=== PATIENT | male | born 1970 | race Caucasian/White ===

== ENCOUNTER 2017-01-18 09:08 | Emergency (ER) ==
[2017-01-18 09:19] VITALS: BP 144/97; TEMP 97.7; BMI 26.7
[2017-01-18] MEDS: NORCO 10-325 PO STA (09:42)
[2017-01-18] MEDS: TORADOL IM STA (09:43)
--- NOTE | 2017-01-18 10:23 | DI ---
EXAM: Radiographs, left foot HISTORY: Left foot pain. COMPARISON: None available. TECHNIQUE: Three views. FINDINGS: Bone mineralization is normal. There is no fracture or dislocation. Mild marginal osteo phyte formation seen at the first metatarsal phalangeal joint. No focal soft tissue abnormality is seen. IMPRESSION: 1. No fracture or dislocation. 2. Mild first MTP joint osteoarthritis.
--- NOTE | 2017-01-18 10:38 | ED.PDOC ---
General ED Provider: Dr. FRANCY BYERS Chief Complaint: Foot Pain/Injury Stated Complaint: foot pain Time Seen by Physician: 09:10 (left 1st oe pain red , hot) Mode of Arrival: Walk-In Information Source: Patient Exam Limitations: No limitations Primary Care Provider: AFSHAN DUENAS Nursing and Triage Documentation Reviewed and Agree: Yes Musculoskeletal Complaint Exam - Ankle/Foot Complaint/Exam Location of Injury: Reports: Left, Foot, Toe #1 Mechanism of Injury: Reports: No known trauma Onset/Duration: 1 day Symptoms Are: Reports: Still present Onset of Pain: Reports: Hours Initial Severity: Moderate Current Severity: Moderate Location: Reports: Discrete Character: Reports: Throbbing Alleviating: Reports: None Aggravating: Reports: Movement Able to Bear Weight: Yes Associated Signs and Symptoms: Reports: Swelling, Redness. Denies: Bruising, Fever, Weakness, Numbness, Tingling Gout Risk Factors: Reports: >40 years old Related Surgical History: Reports: None Differential Diagnosis: Closed Fracture, Gout Review of Systems - Review Of Systems Constitutional: Reports: No symptoms Eyes: Reports: No symptoms Ears, Nose, Mouth, Throat: Reports: No symptoms Respiratory: Reports: No symptoms Cardiac: Reports: No symptoms GI: Reports: No symptoms : Reports: No symptoms Musculoskeletal: Reports: Joint pain Skin: Reports: No symptoms Neurological: Reports: No symptoms Endocrine: Reports: No symptoms Hematologic/Lymphatic: Reports: No symptoms All Other Systems: Reviewed and Negative Past Medical History - Past Medical History Previously Healthy: Yes Endocrine: Reports: None Cardiovascular: Reports: None Respiratory: Reports: None Hematological: Reports: None Gastrointestinal: Reports: None Genitourinary: Reports: None Neuro/Psych: Reports: None Musculoskeletal: Reports: None Cancer: Reports: None - Surgical History General Surgical History: Reports: None - Family History Family History: Reports: None - Social History Smoking Status: Current some day smoker, Light tobacco smoker Hx Substance Use: No Alcohol Screening: Occasionally Physical Exam - Physical Exam Appearance: Well-appearing, No pain distress, Well-nourished Eyes: LUC, EOMI, Conjunctiva clear ENT: Ears normal, Nose normal, Oropharynx normal Respiratory: Airway patent, Breath sounds clear, Breath sounds equal, Respirations nonlabored Cardiovascular: RRR, Pulses normal, No rub, No murmur GI/: Soft, Nontender, No masses, Bowel sounds normal, No Organomegaly Musculoskeletal: Normal strength, ROM intact, No edema, No calf tenderness Skin: Warm, Dry, Normal color Neurological: Sensation intact, Motor intact, Reflexes intact, Cranial nerves intact, Alert, Oriented Psychiatric: Affect appropriate, Mood appropriate Critical Care Note - Critical Care Note Total Time (mins): 0 Course - Course Orders, Labs, Meds: Orders Category Date Time Status Hydrocodone Bit/Acetaminophen [[place] 10-325] MEDS 01/18/17 09:33 Stat 1 tab PO ONCE STA Ketorolac Tromethamine [Toradol] MEDS 01/18/17 09:32 Stat 60 mg IM ONCE STA FOOT, LEFT 3 VIEWS Stat RADS 01/18/17 09:31 Ordered Medications Discontinued Medications Generic Name Dose Route Start Last Admin Trade Name Edi PRN Reason Stop Dose Admin Acetaminophen/Hydrocodone Bitart 1 tab 01/18/17 09:33 01/18/17 09:42 [place] 10-325 PO 01/18/17 09:34 1 tab ONCE STA Administration Ketorolac Tromethamine 60 mg 01/18/17 09:32 01/18/17 09:43 Toradol IM 01/18/17 09:33 60 mg ONCE STA Administration Vital Signs: Temp Pulse Resp BP Pulse Ox 01/18/17 09:09 97.7 F 93 H 20 144/97 H 98 Departure - Departure Time of Disposition: 10:37 Disposition: HOME SELF-CARE Discharge Problem: Gout attack Instructions: Gout (ED), Low Purine Diet (ED) Condition: Good Pt referred to PMD for follow-up: No Additional Instructions: Please call your Family Physician as soon as possible to schedule a follow-up appointment. Allergies/Adverse Reactions: Allergies No Known Allergies Allergy (Verified 01/18/17 09:18) Home Medications: Ambulatory Orders Naproxen Sodium [Aleve] 3 tab PO QPM 08/10/13 Hydrocodone/Acetaminophen [[place] 10-325 Tablet] 1 each PO Q8HR #12 tablet Indomethacin [Indocin] 25 mg PO BIDWM #8 capsule 01/18/17
== END 2017-01-18 10:55 | disposition home or self-care (01) ==
LOC: ED 09:08
DX: M10.9 Gout, unspecified (principal); F17.210 Nicotine dependence, cigarettes, uncomplicated
CPT/HCPCS: 96372; 99282

== ENCOUNTER 2017-03-24 16:13 | Emergency (ER) ==
[2017-03-24 16:18] VITALS: BP 146/92; TEMP 97.8; BMI 26.2
--- NOTE | 2017-03-24 16:37 | ED.PDOC ---
General ED Provider: Dr. QUAN CARVALHO JR Chief Complaint: Foot Pain/Injury Stated Complaint: DIAGNOSED WITH GOUT ON JANUARY 18....FOOT HAS NEVER REALLY CLEARED UP BUT HAS GOTTEN WORSE AGAIN IN LAST TWO DAYS. RIGHT GREAT TOE SWOLLEN AND REDDENED RED AND SWOLLEN RIGHT GREAT TOE knee and foot ....VERY TENDER TO TOUCH. ON ALLOPURINOL FOR 2.5 WEEKS, FOLLOWING DIET INSTRUCTIONS[ End ]97.8 82 20 97% 146/92 9/10 Time Seen by Physician: 16:30 Mode of Arrival: Walk-In Information Source: Patient Exam Limitations: No limitations Primary Care Provider: AFSHAN DUENAS Nursing and Triage Documentation Reviewed and Agree: No Review of Systems - Review Of Systems Constitutional: Reports: No symptoms Eyes: Reports: No symptoms Ears, Nose, Mouth, Throat: Reports: No symptoms Respiratory: Reports: No symptoms Cardiac: Reports: No symptoms GI: Reports: No symptoms : Reports: No symptoms Musculoskeletal: Reports: Gout, Joint pain Skin: Reports: No symptoms, Change in color Neurological: Reports: No symptoms Endocrine: Reports: No symptoms Hematologic/Lymphatic: Reports: No symptoms All Other Systems: Other Past Medical History - Past Medical History Previously Healthy: Yes Endocrine: Reports: None Cardiovascular: Reports: None Respiratory: Reports: None Hematological: Reports: None Gastrointestinal: Reports: None Genitourinary: Reports: None Neuro/Psych: Reports: None Musculoskeletal: Reports: Other (CHRONIC BACK ISSUES, SCIATIC NERVE) Cancer: Reports: None - Surgical History General Surgical History: Reports: None - Family History Family History: Reports: None - Social History Smoking Status: Current some day smoker, Light tobacco smoker Hx Substance Use: No Alcohol Screening: Occasionally - Immunizations Tetanus Shot up to Date: Yes Physical Exam - Physical Exam Appearance: Well-appearing, Thin Pain Distress: Moderate Neck: Supple Respiratory: Airway patent Musculoskeletal: Normal strength, ROM intact, Edema Critical Care Note - Critical Care Note Total Time (mins): 0 Course - Course Vital Signs: Temp Pulse Resp BP Pulse Ox 03/24/17 16:13 97.8 F 82 20 146/92 H 97 Departure - Departure Time of Disposition: 16:51 Disposition: HOME SELF-CARE Discharge Problem: Gout attack Qualifiers: Gout site: toe Gout etiology: idiopathic Laterality: left Qualifier Code: ( M10.072) Idiopathic gout, left ankle and foot Instructions: Low Purine Diet (ED), Gout (ED) Condition: Good Pt referred to PMD for follow-up: Yes Additional Instructions: colchicine for symptoms- discuss with your physician Naprosyn for swelling Allen for pain not controlled no refills recheck PMD this week Colcrys for gout flare 1.2 mg (two tablets) at the first sign of the flare followed by 0.6 mg (one tablet) one hour later Wait 12 hours and then resume the prophylactic dose 0.6 mg once or twice daily Prescriptions: Hydrocodone Bit/Acetaminophen [[place] 5-325] 1 - 2 tab PO Q6HR PRN #12 tablet PRN Reason: pain Naproxen [Naprosyn] 500 mg PO Q12HR PRN #30 tablet PRN Reason: PAIN Colchicine [Colcrys] 0.6 mg PO BID PRN #20 tablet PRN Reason: gout flare Allergies/Adverse Reactions: Allergies No Known Allergies Allergy (Verified 03/24/17 16:20) Home Medications: Ambulatory Orders Allopurinol 100 mg PO DAILY 03/24/17 Colchicine [Colcrys] 0.6 mg PO BID PRN #20 tablet 03/24/17 Hydrocodone Bit/Acetaminophen [[place] 5-325] 1 - 2 tab PO Q6HR PRN #12 tablet 01/03 Naproxen [Naprosyn] 500 mg PO Q12HR PRN #30 tablet 03/24/17
== END 2017-03-24 17:01 | disposition home or self-care (01) ==
LOC: ED 16:13
DX: M10.072 Idiopathic gout, left ankle and foot (principal); F17.210 Nicotine dependence, cigarettes, uncomplicated
CPT/HCPCS: 99282

== ENCOUNTER 2017-04-24 18:10 | Emergency (ER) ==
[2017-04-24 18:19] VITALS: BP 145/94; TEMP 98.2; BMI 26.0
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
--- NOTE | 2017-04-24 20:02 | CT ---
Exam: CT thorax without IV contrast. Clinical indication: Right-sided thoracic pain. TECHNIQUE: Axial unenhanced CT images of the thorax were obtained followed by coronal and sagittal reformats. Findings: There is some anterior wedging of the T9 vertebral body with some vacuum phenomenon within the T8-T 9 disc space. The appearance suggests old injury. The remainder of the vertebral bodies are unrema rkable. The sternum is intact. The bilateral clavicles, scapula, and ribs are intact. The pulmonary parenchyma is clear and there is no pleural abnormality. There are no enlarged axillary, hilar or mediastinal lymph nodes, by size criteria. The visualized portions of the upper abdomen are within normal limits. Impression: 1. Anterior wedging of the T9 vertebral body which is age indeterminate, but the appearance suggest s old. Clinical correlation recommended. 2. Otherwise unremarkable CT of the thorax.
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
[2017-04-24] MEDS ORDERED: NORCO 7.5-325 PO STA (20:41)
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
--- NOTE | 2017-04-25 06:17 | DI ---
EXAM: Right hand, two views, 04/24/2017 HISTORY: Pain. Injury COMPARISON: None. FINDINGS / IMPRESSION: The visualized osseous structures appear intact. Anatomic alignment appears within normal limits. There is no evidence of fracture or dislocation. No acute osseous abnormality.
== END 2017-04-24 21:07 | disposition home or self-care (01) ==
LOC: ED 18:10
DX: S09.90XA Unspecified injury of head, initial encounter (principal); S29.9XXA Unspecified injury of thorax, initial encounter; S49.91XA Unspecified injury of right shoulder and upper arm, initial encounter; S69.91XA Unspecified injury of right wrist, hand and finger(s), initial encounter; S39.91XA Unspecified injury of abdomen, initial encounter; S00.03XA Contusion of scalp, initial encounter; R51 Headache; Y93.55 Activity, bike riding; F17.210 Nicotine dependence, cigarettes, uncomplicated
CPT/HCPCS: 74176; 99283

== ENCOUNTER 2017-05-07 14:19 | Outpatient (CLI) ==
--- NOTE | 2017-05-07 15:32 | DI ---
EXAM: Three views of the right elbow. History: Right elbow pain. Findings: Mildly displaced radial neck fracture. No dislocation. Joint effusion is present. Impression: A mildly displaced right radial neck fracture.
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
== END 2017-05-07 14:20 | disposition home or self-care (01) ==
LOC: RAD 14:19
PROVIDERS: ATTEND Physician Assistant
DX: M25.521 Pain in right elbow (principal)

== ENCOUNTER 2018-09-05 14:56 | Emergency (ER) ==
[2018-09-05 15:01] VITALS: BP 152/99; TEMP 98.3; BMI 27.6
[2018-09-05] MEDS ORDERED: TORADOL IM STA (15:57)
--- NOTE | 2018-09-05 15:59 | ED.PDOC ---
General ED Provider: Dr. GHANSHYAM FERNANDEZ Chief Complaint: Back Pain Stated Complaint: Severe low back pain with sciatica. Chronic recurrent. Under care of PA at [facility]. Supposedly attempting to get hm referred to back specialist Time Seen by Physician: 15:15 Mode of Arrival: Walk-In Information Source: Patient Primary Care Provider: ASHLEY PRATT Nursing and Triage Documentation Reviewed and Agree: Yes Does patient meet sepsis criteria?: No System Inflammatory Response Syndrome: Not Applicable Sepsis Protocol: For patient's 13 years and over: Temp is 96.8 and below OR 101 and greater Pulse >90 BPM Resp >20/minute Acutely Altered Mental Status Are patient's symptoms suggestive of a new infection, such as: -Pneumonia -Skin, Soft Tissue -Endocarditis -UTI -Bone, Joint Infection -Implantable Device -Acute Abdominal Infection -Wound Infection -Meningitis -Blood Stream Catheter Infection -Unknown Musculoskeletal Complaint Exam - Back Pain Complaint/Exam Mechanism of Injury: Reports: No known trauma Onset/Duration: seveal weeks Symptoms Are: Still present Timing: Intermittent Episodes Lasting: Hours Initial Severity: Moderate Current Severity: Moderate Location: Reports: Discrete, Radiating Character: Reports: Spasmodic, Stiffness, Burning Aggravating: Reports: Movements, Lifting, Bending, Walking Alleviating: Reports: Rest, Position Associated Signs and Symptoms: Denies: Swelling, Redness, Bruising, Fever, Weakness, Numbness, Tingling, Abdominal pain, Flank pain, Bladder incontinence, Bowel incontinence, Weight loss, Pain with weight bearing Related History: Denies: Similar episode TAD Risk Factors: Reports: None AAA Risk Factors: Reports: None Cauda Equina Risk Factors: Reports: None Epidural Abcess Risk Factors: Reports: None Related Surgical History: Reports: None Focal Tenderness: Yes Paraspinal Muscle Tenderness: Yes Paraspinal Muscle Spasm: No Scoliosis: No Lordosis: No Kyphosis: No SLR Test: Right Negative, Left Positive Hip Motion Testing Pain: Right Negative, Left Positive Focal Weakness: Present: None Focal Sensory Loss: Present: None Gait: Present: Abnormal Differential Diagnoses: Herniated Disk, Strain Review of Systems - Review Of Systems Constitutional: Reports: No symptoms Eyes: Reports: No symptoms Ears, Nose, Mouth, Throat: Reports: No symptoms Respiratory: Reports: No symptoms Cardiac: Reports: No symptoms GI: Reports: No symptoms : Reports: No symptoms Musculoskeletal: Reports: No symptoms, Back pain, Muscle stiffness Skin: Reports: No symptoms Neurological: Reports: No symptoms Endocrine: Reports: No symptoms Hematologic/Lymphatic: Reports: No symptoms All Other Systems: Reviewed and Negative Past Medical History - Past Medical History Previously Healthy: Yes Endocrine: Reports: None Cardiovascular: Reports: None Respiratory: Reports: None Hematological: Reports: None Gastrointestinal: Reports: None Genitourinary: Reports: None Neuro/Psych: Reports: None Musculoskeletal: Reports: Other (CHRONIC BACK ISSUES, SCIATIC NERVE) Cancer: Reports: None - Surgical History General Surgical History: Reports: None - Family History Family History: Reports: None - Social History Smoking Status: Current every day smoker, Light tobacco smoker Hx Substance Use: No Alcohol Screening: Occasionally Physical Exam - Physical Exam Appearance: Well-appearing Ill-appearing: None Pain Distress: Moderate Eyes: LUC, EOMI, Conjunctiva clear ENT: Ears normal, Nose normal, Oropharynx normal Neck: Supple Respiratory: Airway patent, Breath sounds clear, Breath sounds equal, Respirations nonlabored Cardiovascular: RRR, Pulses normal, No rub, No murmur GI/: Soft, Nontender, No masses, Bowel sounds normal, No Organomegaly Musculoskeletal: Normal strength, No edema, No calf tenderness, Limited ROM ( Lumbar spine restricted due to pain ) Skin: Warm, Dry, Normal color Neurological: Sensation intact, Motor intact, Reflexes intact, Cranial nerves intact, Alert, Oriented Interpretation - Radiology Interpretation Radiology Interpretation By: Radiologist Radiology Results: Positive (Lumbar disc disease with bulging disc and compromised nerve canal) Critical Care Note - Critical Care Note Total Time (mins): 60 Course - Course Hematology/Chemistry: 09/05/18 16:11 09/05/18 16:11 Orders, Labs, Meds: Lab Review 09/05/18 09/05/18 09/05/18 16:11 16:11 16:11 WBC 4.36 RBC 5.00 Hgb 16.1 Hct 46.5 MCV 93.0 MCH 32.2 H MCHC 34.6 RDW Coeff of Aparna 11.4 L Plt Count 165 Immature Gran % (Auto) 0.2 Neut % (Auto) 58.3 Lymph % (Auto) 27.1 Bates % (Auto) 10.8 H Eos % (Auto) 2.5 Baso % (Auto) 1.1 Immature Gran # (Auto) 0.0 Neut # (Auto) 2.5 Lymph # (Auto) 1.2 Bates # (Auto) 0.5 Eos # (Auto) 0.1 Baso # (Auto) 0.1 ESR 2 Sodium 138.0 Potassium 4.11 Chloride 99.1 Carbon Dioxide 33.3 H Anion Gap 9.71 BUN 15.9 Creatinine 1.03 Estimated GFR (MDRD) 77.00 BUN/Creatinine Ratio 15.43 Glucose 84.7 Calcium 9.11 Total Bilirubin 0.48 AST 33.4 ALT 31.6 Alkaline Phosphatase 78.5 Total Protein 7.68 Albumin 4.63 Globulin 3.05 Albumin/Globulin Ratio 1.51 Urine Color Urine Clarity Urine pH Ur Specific [place] Urine Protein Urine Glucose (UA) Urine Ketones Urine Blood Urine Nitrite Urine Bilirubin Urine Urobilinogen Ur Leukocyte Esterase Urine Opiates Screen Positive Ur Oxycodone Screen Negative Urine Methadone Screen Negative Ur Propoxyphene Screen Negative Ur Barbiturates Screen Negative U Tricyclic Antidepress Negative Ur Phencyclidine Scrn Negative Ur Amphetamine Screen Negative U Methamphetamines Scrn Negative U Benzodiazepines Scrn Negative Urine Cocaine Screen Negative U Cannabinoids Screen Negative 09/05/18 16:11 WBC RBC Hgb Hct MCV MCH MCHC RDW Coeff of Aparna Plt Count Immature Gran % (Auto) Neut % (Auto) Lymph % (Auto) Bates % (Auto) Eos % (Auto) Baso % (Auto) Immature Gran # (Auto) Neut # (Auto) Lymph # (Auto) Bates # (Auto) Eos # (Auto) Baso # (Auto) ESR Sodium Potassium Chloride Carbon Dioxide Anion Gap BUN Creatinine Estimated GFR (MDRD) BUN/Creatinine Ratio Glucose Calcium Total Bilirubin AST ALT Alkaline Phosphatase Total Protein Albumin Globulin Albumin/Globulin Ratio Urine Color Yellow Urine Clarity Clear Urine pH 7.0 Ur Specific [place] 1.010 Urine Protein Negative Urine Glucose (UA) Negative Urine Ketones Negative Urine Blood Negative Urine Nitrite Negative Urine Bilirubin Negative Urine Urobilinogen 0.2 Ur Leukocyte Esterase Negative Urine Opiates Screen Ur Oxycodone Screen Urine Methadone Screen Ur Propoxyphene Screen Ur Barbiturates Screen U Tricyclic Antidepress Ur Phencyclidine Scrn Ur Amphetamine Screen U Methamphetamines Scrn U Benzodiazepines Scrn Urine Cocaine Screen U Cannabinoids Screen Orders Category Date Time Status CBC W/ AUTO DIFF Stat LAB 09/05/18 16:11 Completed CMP [COMPREHENSIVE METABOLIC PANEL] Stat LAB 09/05/18 16:11 Completed ESR Stat LAB 01/17/19 16:11 Completed UA [URINALYSIS C & S IF INDICATED] Stat LAB 09/05/18 16:11 Completed URINE DRUG SCREEN (RAPID FOR ED) [DRUG SCREEN, URINE, LAB 09/05/18 16:11 Completed RAPID] Stat Ketorolac Tromethamine [Toradol] MEDS 09/05/18 15:57 Discontinued 30 mg IM ONCE STA CT LUMBAR SPINE W/O CONTRAST Stat RADS 09/05/18 15:58 Completed Medications Discontinued Medications Generic Name Dose Route Start Last Admin Trade Name Freq PRN Reason Stop Dose Admin Ketorolac Tromethamine 30 mg 09/05/18 15:57 09/05/18 16:12 Toradol IM 09/05/18 15:58 30 mg ONCE STA Administration Vital Signs: Temp Pulse Resp BP Pulse Ox 09/05/18 14:56 98.3 F 100 H 20 152/99 H 98 Departure - Departure Time of Disposition: 17:30 Disposition: HOME SELF-CARE Discharge Problem: Sciatica, Bulging lumbar disc Instructions: Sciatica (ED), Lumbar Radiculopathy (ED), Degenerative Disc Disease (ED) Condition: Fair Pt referred to PMD for follow-up: Yes (see pcp in next week, call for referral to neurosurg) IPMP verified?: No Additional Instructions: see pcp in next week, call for referral to neurosurg Take meds as directed including Naprosyn Prescriptions: Hydrocodone Bit/Acetaminophen [[place] 5-325] 1 each PO Q4HR PRN #12 tablet PRN Reason: unrelieved low back pain Tizanidine HCl [Zanaflex] 1 cap PO BID PRN 5 Days #10 capsule PRN Reason: low back pain Allergies/Adverse Reactions: Allergies No Known Allergies Allergy (Verified 09/05/18 15:03) Home Medications: Ambulatory Orders Gabapentin 300 mg PO BEDTIME 09/05/18 Hydrocodone Bit/Acetaminophen [[place] 5-325] 1 each PO Q4HR PRN #12 tablet Naproxen 500 mg PO 12 PRN 09/05/18 Tizanidine HCl [Zanaflex] 1 cap PO BID PRN 5 Days #10 capsule 09/05/18 Disposition Discussed With: Patient Additional Comments Additional Comments: After receiving Toradol pain was reduced and was up ambulatory in department
--- NOTE | 2018-09-05 17:05 | CT ---
EXAM: CT LUMBAR SPINE HISTORY: Severe sciatica and lower back pain TECHNIQUE: CT lumbar spine without contrast. 3-mm axial sections. Coronal and sagittal reformation s. COMPARISON: 03/18/2013 FINDINGS: Bone density appears decreased. Redemonstration of moderate Schmorl's nodes involving the superior e ndplates at T12 and L1 which appear grossly stable. No other vertebral body height loss is seen. Th ere is no acute fracture suggested. No spondylolisthesis. No scoliosis. Sacroiliac joints are with in normal limits. There is diffuse degenerative disc and facet disease leading to multilevel central canal and neural f oraminal stenosis although much more noticeable at L3/L4 where there is the suggestion of a left para central disc extrusion which leads to left paracentral stenosis and left neural foraminal narrowing. Broad-based disc bulging at L4/L5 leads to at least moderate central canal stenosis and bilateral ne ural foraminal narrowing. The pedicles appear congenitally short. No paraspinal fluid collection. IMPRESSION: 1. No acute fracture or subluxation. 2. Degenerative disc and facet disease throughout although much more apparent at L3/L4 where there i s a left paracentral disc extrusion suggested. This leads to left paracentral stenosis and left neur al foraminal narrowing. Follow-up MRI is recommended.
== END 2018-09-05 17:50 | disposition home or self-care (01) ==
LOC: ED 14:56
DX: M51.16 Intervertebral disc disorders with radiculopathy, lumbar region (principal); F17.210 Nicotine dependence, cigarettes, uncomplicated
CPT/HCPCS: 36415; 80053; 80306; 81001; 85025; 85651; 96372; 99283

== ENCOUNTER 2018-10-13 16:07 | Emergency (ER) ==
[2018-10-13 16:12] VITALS: BP 148/101; TEMP 98; BMI 26.2
--- NOTE | 2018-10-13 16:19 | ED.PDOC ---
General ED Provider: Dr. FRANCY BYERS Chief Complaint: Back Pain Stated Complaint: back pain Time Seen by Physician: 16:16 (seen with lily franco ) Mode of Arrival: Walk-In Information Source: Patient Exam Limitations: No limitations Primary Care Provider: ASHLEY PRATT Nursing and Triage Documentation Reviewed and Agree: Yes Does patient meet sepsis criteria?: No System Inflammatory Response Syndrome: Not Applicable Sepsis Protocol: For patient's 13 years and over: Temp is 96.8 and below OR 101 and greater Pulse >90 BPM Resp >20/minute Acutely Altered Mental Status Are patient's symptoms suggestive of a new infection, such as: -Pneumonia -Skin, Soft Tissue -Endocarditis -UTI -Bone, Joint Infection -Implantable Device -Acute Abdominal Infection -Wound Infection -Meningitis -Blood Stream Catheter Infection -Unknown Musculoskeletal Complaint Exam - Back Pain Complaint/Exam Mechanism of Injury: Reports: No known trauma Onset/Duration: today Symptoms Are: Still present Timing: Constant Episodes Lasting: Hours Initial Severity: Moderate (ambulatory in er) Character: Reports: Aching, Spasmodic, Stiffness Aggravating: Reports: Movements, Lifting, Bending, Walking Alleviating: Reports: Rest, Position Associated Signs and Symptoms: Denies: Swelling, Redness, Bruising, Fever, Weakness, Numbness, Tingling, Abdominal pain, Flank pain, Bladder incontinence, Bowel incontinence, Weight loss, Pain with weight bearing Related History: Reports: Similar episode (scoatica) TAD Risk Factors: Reports: None AAA Risk Factors: Reports: None Cauda Equina Risk Factors: Reports: None Epidural Abcess Risk Factors: Reports: None Related Surgical History: Reports: None Focal Tenderness: No Paraspinal Muscle Tenderness: No Paraspinal Muscle Spasm: No Scoliosis: No Lordosis: No Kyphosis: No Focal Weakness: Present: None Focal Sensory Loss: Present: None Gait: Present: Normal Differential Diagnoses: Arthritis, Strain, Sprain Review of Systems - Review Of Systems Constitutional: Reports: No symptoms Eyes: Reports: No symptoms Ears, Nose, Mouth, Throat: Reports: No symptoms Respiratory: Reports: No symptoms Cardiac: Reports: No symptoms GI: Reports: No symptoms : Reports: No symptoms Musculoskeletal: Reports: Back pain Skin: Reports: No symptoms Neurological: Reports: No symptoms Endocrine: Reports: No symptoms Hematologic/Lymphatic: Reports: No symptoms All Other Systems: Reviewed and Negative Past Medical History - Past Medical History Previously Healthy: Yes Endocrine: Reports: None Cardiovascular: Reports: None Respiratory: Reports: None Hematological: Reports: None Gastrointestinal: Reports: None Genitourinary: Reports: None Neuro/Psych: Reports: None Musculoskeletal: Reports: Other (CHRONIC BACK ISSUES, SCIATIC NERVE) Cancer: Reports: None - Surgical History General Surgical History: Reports: None - Family History Family History: Reports: None - Social History Smoking Status: Current every day smoker, Light tobacco smoker Hx Substance Use: No Alcohol Screening: Occasionally Physical Exam - Physical Exam Appearance: Well-appearing, No pain distress, Well-nourished Eyes: LUC, EOMI, Conjunctiva clear ENT: Ears normal, Nose normal, Oropharynx normal Respiratory: Airway patent, Breath sounds clear, Breath sounds equal, Respirations nonlabored Cardiovascular: RRR, Pulses normal, No rub, No murmur GI/: Soft, Nontender, No masses, Bowel sounds normal, No Organomegaly Musculoskeletal: Normal strength, ROM intact, No edema, No calf tenderness Skin: Warm, Dry, Normal color Neurological: Sensation intact, Motor intact, Reflexes intact, Cranial nerves intact, Alert, Oriented Psychiatric: Affect appropriate, Mood appropriate Critical Care Note - Critical Care Note Total Time (mins): 0 Course - Course Vital Signs: Temp Pulse Resp BP Pulse Ox 10/13/18 16:07 98 F 98 H 20 148/101 H 98 Departure - Departure Time of Disposition: 16:18 Disposition: HOME SELF-CARE Discharge Problem: Low back pain Qualifiers: Chronicity: unspecified Back pain laterality: unspecified Sciatica presence: without sciatica Qualified Code(s): M54.5 - Low back pain Instructions: Back Pain (ED), Lower Back Exercises (ED), Low Back Strain (ED) Condition: Good Pt referred to PMD for follow-up: Yes IPMP verified?: No Allergies/Adverse Reactions: Allergies No Known Allergies Allergy (Verified 10/13/18 16:13) Home Medications: Ambulatory Orders Gabapentin 300 mg PO BEDTIME 09/05/18 Naproxen 500 mg PO 12 PRN 09/05/18 Disposition Discussed With: Patient
== END 2018-10-13 16:32 | disposition home or self-care (01) ==
LOC: ED 16:07
DX: M54.5 Low back pain (principal)
CPT/HCPCS: 99282

== ENCOUNTER 2018-10-22 16:25 | Emergency (ER) ==
[2018-10-22 16:30] VITALS: BP 144/96; TEMP 97.9; BMI 25.9
--- NOTE | 2018-10-22 17:43 | ED.PDOC ---
General ED Provider: Dr. GHANSHYAM FERNANDEZ Chief Complaint: Back Pain Stated Complaint: Low back pain. Patient states has hx of bulging disc to lower back. He states the pain has worsened during the nite and did not have pain med to relieve. State has appt to see neuro in [place] but states "i dont think i can make the car ride"--pain radiates into hips/thighsS Time Seen by Physician: 17:30 Mode of Arrival: Walk-In Information Source: Patient Exam Limitations: No limitations Primary Care Provider: ASHLEY PRATT Nursing and Triage Documentation Reviewed and Agree: Yes Does patient meet sepsis criteria?: No System Inflammatory Response Syndrome: Not Applicable Sepsis Protocol: For patient's 13 years and over: Temp is 96.8 and below OR 101 and greater Pulse >90 BPM Resp >20/minute Acutely Altered Mental Status Are patient's symptoms suggestive of a new infection, such as: -Pneumonia -Skin, Soft Tissue -Endocarditis -UTI -Bone, Joint Infection -Implantable Device -Acute Abdominal Infection -Wound Infection -Meningitis -Blood Stream Catheter Infection -Unknown Musculoskeletal Complaint Exam - Back Pain Complaint/Exam Mechanism of Injury: Reports: No known trauma Onset/Duration: 1 mo Symptoms Are: Still present Timing: Constant Episodes Lasting: Hours Initial Severity: Moderate Current Severity: Moderate Location: Reports: Diffuse, Radiating (Lt posterior hip into thigh) Character: Reports: Sharp, Aching, Throbbing Aggravating: Reports: Movements Alleviating: Reports: Rest (at times) Associated Signs and Symptoms: Reports: Pain with weight bearing. Denies: Swelling, Redness, Bruising, Fever, Weakness, Numbness, Tingling, Abdominal pain , Flank pain, Bladder incontinence, Bowel incontinence, Weight loss Related History: Reports: Similar episode TAD Risk Factors: Reports: None AAA Risk Factors: Reports: None Cauda Equina Risk Factors: Reports: None Epidural Abcess Risk Factors: Reports: None Related Surgical History: Reports: None Focal Tenderness: Yes Paraspinal Muscle Tenderness: Yes Paraspinal Muscle Spasm: Yes Scoliosis: No Lordosis: No Kyphosis: No SLR Test: Right Negative, Left Positive Hip Motion Testing Pain: Right Negative, Left Positive Focal Weakness: Present: None Gait: Present: Abnormal Differential Diagnoses: Herniated Disk Review of Systems - Review Of Systems Constitutional: Reports: No symptoms Eyes: Reports: No symptoms Ears, Nose, Mouth, Throat: Reports: No symptoms Respiratory: Reports: No symptoms Cardiac: Reports: No symptoms GI: Reports: No symptoms : Reports: No symptoms Musculoskeletal: Reports: Back pain Skin: Reports: No symptoms Neurological: Reports: No symptoms Endocrine: Reports: No symptoms Hematologic/Lymphatic: Reports: No symptoms All Other Systems: Reviewed and Negative Past Medical History - Past Medical History Previously Healthy: Yes Endocrine: Reports: None Cardiovascular: Reports: None Respiratory: Reports: None Hematological: Reports: None Gastrointestinal: Reports: None Genitourinary: Reports: None Neuro/Psych: Reports: None Musculoskeletal: Reports: Other (CHRONIC BACK ISSUES, SCIATIC NERVE) Cancer: Reports: None - Surgical History General Surgical History: Reports: None - Family History Family History: Reports: None - Social History Smoking Status: Current every day smoker, Light tobacco smoker Hx Substance Use: No Alcohol Screening: Occasionally Physical Exam - Physical Exam Appearance: Well-appearing, Well-nourished Pain Distress: Moderate Eyes: LUC, EOMI, Conjunctiva clear ENT: Ears normal, Nose normal, Oropharynx normal Respiratory: Airway patent, Breath sounds clear, Breath sounds equal, Respirations nonlabored Cardiovascular: RRR, Pulses normal, No rub, No murmur GI/: Soft, Nontender, No masses, Bowel sounds normal, No Organomegaly Musculoskeletal: Normal strength, ROM intact, No edema, No calf tenderness Skin: Warm, Dry, Normal color Neurological: Sensation intact, Motor intact, Reflexes intact, Cranial nerves intact, Alert, Oriented Psychiatric: Affect appropriate, Mood appropriate Critical Care Note - Critical Care Note Total Time (mins): 0 Course - Course Vital Signs: Temp Pulse Resp BP Pulse Ox 10/22/18 16:25 97.9 F 89 20 144/96 H 98 Departure - Departure Time of Disposition: 19:20 Disposition: PLACED OBSERVATION Discharge Problem: Low back pain, Sciatica associated with disorder of lumbar spine Instructions: Low Back Strain (ED) Condition: Fair Pt referred to PMD for follow-up: Yes IPMP verified?: No (could not access the system) Additional Instructions: See PCP for additional pain management Take Flexeril and Diclofenac for pain Keep apt with specialist Prescriptions: Hydrocodone/Acetaminophen [Hydrocodon-Acetaminophn 10-325] 1 each PO Q8HR #10 tablet Cyclobenzaprine HCl [Flexeril] 10 mg PO BID #20 tablet Diclofenac Sodium 75 mg PO BID #20 tablet. Allergies/Adverse Reactions: Allergies No Known Allergies Allergy (Verified 10/22/18 16:32) Home Medications: Ambulatory Orders Gabapentin 300 mg PO BEDTIME 09/05/18 Naproxen 500 mg PO 12 PRN 09/05/18 Cyclobenzaprine HCl [Flexeril] 10 mg PO BID #20 tablet 10/22/18 Diclofenac Sodium 75 mg PO BID #20 tablet. 10/22/18 Disposition Discussed With: Patient
== END 2018-10-22 19:45 | disposition home or self-care (01) ==
LOC: ED 16:25
DX: M51.17 Intervertebral disc disorders with radiculopathy, lumbosacral region (principal); F17.210 Nicotine dependence, cigarettes, uncomplicated
CPT/HCPCS: 99282